=== PATIENT | female | born 1985 ===

== ENCOUNTER 2024-01-08 23:16 | Emergency (ER) | payer BC, SELFPAY ==
[2024-01-08 23:18] VITALS: BP 172/99
[2024-01-09 00:08] VITALS: BMI 25.9
[2024-01-09 00:15] VITALS: BP 136/93
[2024-01-09 00:25] LABS: Urine Albumin Negative (Neg - Trace); Urine Bilirubin Negative (Negative); Urine Character Clear (Clear); Urine Color Straw; Urine Glucose Negative (Negative); Urine Ketone Negative (Negative); Urine Leukocyte Trace (Negative); Urine Nitrite Negative (Negative); Urine Occult Blood Negative (Negative); Urine Urobilinogen Negative (Neg - 1+)
[2024-01-09 00:36] LABS: HCG, Serum Qualitative Screen Negative
[2024-01-09 00:40] LABS: ALT (SGPT) 234 U/L (0-35); AST (SGOT) 94 U/L (14-36); Albumin 3.8 g/dl (3.5-5.0); Alkaline Phosphatase 116 U/L (38-126); Blood Urea Nitrogen 12 mg/dl (7-17); Calcium 9.3 mg/dl (8.4-10.2); Carbon Dioxide 30 mmol/L (22-30); Chloride 103 mmol/L (98-107); Estimated Creatinine Clearance 93 ml/min; Glucose 121 mg/dl (70-99); Lipase 125 U/L (23-300); Potassium 3.8 mmol/L (3.5-5.1); Sodium 139 mmol/L (135-145); Total Bilirubin 0.3 mg/dl (0.2-1.3); Total Protein 5.9 g/dl (6.3-8.2); eGFR > 60.00
[2024-01-09 00:41] LABS: % Basophils 0.9 % (0-2); % Eosinophils 6.8 % (0-6); % Immature Granulocytes 2.4 % (0-0.5); % Lymphocytes 36.3 % (20.5-51.1); % Monocytes 6.4 % (1.7-9.3); % Neutrophils 47.2 % (42.2-75.2); Absolute Basophils 0.1 10^3/uL (0-0.2); Absolute Eosinophils 0.6 10^3/uL (0-0.7); Absolute Immature Granulocytes 0.2 10^3/uL (0-0.05); Absolute Lymphocytes 3.3 10^3/uL (1.2-3.4); Absolute Monocytes 0.6 10^3/uL (0.1-0.6); Absolute Neutrophils 4.2 10^3/uL (1.4-6.5); Hematocrit 38.8 % (37.0-47.0); Hemoglobin 13.6 g/dL (12.0-16.0); Mean Corp Hgb Conc. 35.1 g/dL (33.0-37.0); Mean Corpuscular Volume 88.4 fL (81.0-99.0); Mean Platelet Volume 10.6 fL (7.4-10.4); Nucleated Red Blood Cells % 0 %; Platelet Count 210 10^3/uL (130-400); Red Blood Cell Count 4.39 10^6/uL (4.20-5.40); Red Cell Dist. Width 13.1 % (11.5-14.5)
[2024-01-09 00:42] LABS: Urine Red Blood Cell None Seen /HPF (0-2)
[2024-01-09 00:45] VITALS: BP 136/93
[2024-01-09 01:00] VITALS: BP 131/83
--- NOTE | 2024-01-09 02:05 | ED.GENMED ---
History of Present Illness
General
Chief Complaint: Abdominal Pain
Source: patient
Exam Limitations: none
Time Seen by Provider: 01/09/24 01:50
Nursing documentation reviewed up to this point in time: agreed with
History of Present Illness
History of Present Illness:
This is a 38-year-old woman with history of lupus, currently well-controlled and not maintained on medications. She returned this evening from a 1 week vacation in [place] and presents to the ED with complaints of 3-day history of right lateral
abdominal pain that has been progressive over the past 3 days. Right lateral abdominal pain is worse with movement, worse with cough, improves with sitting or lying still. She denies insightful injury, denies lifting but has been pulling a
suitcase.
She did suffer an episode of bronchitis over 2 weeks ago with mild residual cough that resolved during the first 1 to 2 days of her vacation. Then 2 days after resolution of cough she developed right lateral abdominal pain.
She does admit to significant alcohol consumption over the past week while on vacation but denies daily nor frequent alcohol use.
Appetite has been good, no change in pain with meals, no nausea nor vomiting, no diarrhea or constipation, no dysuria no urgency nor hematuria. She denies back pain. She has not had a fever nor chills, denies chest pain or shortness of breath, no
leg pain or swelling. No rash.
Unsure as to her last menstrual period admits that menses are quite irregular. She has a Mirena IUD in place.
No history of similar episodes of pain.
She has not been taking anything for discomfort.
She takes no medicines on a daily basis.
Past History
Past History
ED Past Medical History: Other (Lupus)
ED Past Surgical History: None
Social History
Tobacco: Smoker
Alcohol: Occasional
Drug: None
Living: with family
Employment: Employed
Family History
Family History: Other (Noncontributory)
Phy Exam
Physical Exam
Physical Exam:
GENERAL: This is a 38-year-old woman appears her stated age, bright and alert, pleasant, appears in no acute distress.
EYE: anicteric
NECK: Supple, nontender, no meningismus, no significant adenopathy.
ENT: oral mucosa is moist. No rhinorrhea.
CARDIAC: Regular rate and rhythm. no murmur.
LUNGS: Clear breath sounds bilaterally, no acute respiratory distress, no wheezes/rales/rhonchi
ABDOMEN: Soft, nondistended, moderate tenderness right mid lateral abdomen, no r/g, no cvat. normoactive BS.
NEUROLOGICAL: Alert and oriented x3, no focal neuro deficits. Gait is steady.
SKIN: Warm and dry, normal color, skin intact. No rash.
MUSCULOSKELETAL: No C/C/E. peripheral pulses are full and equal b/l. No palpable tenderness.
PSYCH: Normal and appropriate interaction.
Course
Orders/Labs/Results
Orders:
Orders
01/09/24 00:09
Test Result ONCE
01/09/24 00:15
Complete Blood Count/With Diff Urgent
Comprehensive Metabolic Panel Urgent
HCG, Serum Qualitative Screen Urgent
Lipase Urgent
Urinalysis Reflex To Culture Urgent
Date Specimen was Collected: 01/09/24
Time Specimen was Collected: 00:07
Urine Microscopic Reflex Cult Urgent
01/09/24 02:03
CT Abd/pelvis W Iv Cont Urgent
Comment:
Reason For Exam: 3 day hx right lateral abd pain
01/09/24 02:04
Ketorolac [Toradol] 30 mg IV NOW STA
Abnormal Lab Results
01/09/24
00:15
MPV 10.6 H fL
(7.4-10.4)
Abs Immat Gran (auto) 0.2 H 10^3/uL
(0-0.05)
Immature Gran % 2.4 H %
(0-0.5)
Eosinophils % 6.8 H %
(0-6)
Glucose 121 H mg/dl
(70-99)
AST 94 H U/L
(14-36)
ALT 234 H U/L
(0-35)
Total Protein 5.9 L g/dl
(6.3-8.2)
Leukocyte Esterase Rfl Trace A
(Negative)
01/09/24 00:15
01/09/24 00:15
Vital Signs
Initial and Last Documented VS:
Initial Vital Signs
Temp Pulse Resp BP Pulse Ox
98.4 F 91 18 172/99 100
01/08/24 23:18 01/08/24 23:18 01/08/24 23:18 01/08/24 23:18 01/08/24 23:18
Last Documented Vital Signs
Temp Pulse Resp BP Pulse Ox
98.4 F 70 19 110/95 99
01/08/24 23:18 01/09/24 02:18 01/09/24 02:18 01/09/24 02:18 01/09/24 02:18
MDM/Problems Addressed
Differential Diagnosis Includes:
Concern for appendicitis, cholecystitis, ureteric stone, pyelonephritis, colitis, abdominal wall muscle strain.
Labs thus far reveal unremarkable CBC, mildly elevated LFTs with normal bilirubin, normal alkaline phosphatase. hCG is negative. Urinalysis is unremarkable.
Will medicate for pain with IV Toradol and plan for CT abdomen and pelvis.
*Radiology
Radiology exam reviewed: radiology read reviewed (CT of the abdomen pelvis is unremarkable. Normal appendix. No bowel obstruction. No obstructing renal stone.)
*Pulse Oximetry
Patient hypoxic: no
*Critical Care Note
Total Time (30-74mins, 75-104mins- exclusive of procedures): Not Applicable
Update Note
Update Note:
01/09/2024 0345 AM
Patient continues with right lateral mid abdominal pain most noted with repositioning, movement, improves when lying still.
CT abdomen pelvis is unremarkable.
I suspect abdominal wall muscle strain, other consideration is a mild hepatitis versus prodromal pain prior to herpes zoster. No evidence of liver pathology on CT.
Recommend she avoid alcoholic beverages at least over the next 2 to 3 weeks.
Will add a short course of diclofenac for as needed pain. Recommend rest, avoid heavy lifting or straining, local heat versus lidocaine patches.
Prompt follow-up with PCP this week for recheck.
ED Attending Note
-
Portions of this chart may have been created with voice recognition software.� Occasional wrong word or��sound alike� substitutions may have occurred due to the inherent limitations of voice recognition software.
Discharge Plan
Departure
Patient Disposition: Home (Routine Discharge)
Date of Disposition: 01/09/24
Time of Disposition: 03:47
Patient with high blood pressure during this ER visit?: No
Condition: Good
Discharge Problem:
Right lateral abdominal pain
Instructions: Abdominal Pain
Prescriptions:
New
diclofenac sodium 75 mg tablet,delayed release (DR/EC)
75 mg PO BID PRN (Reason: pain) Qty: 30 0RF
No Action
Mirena 21 mcg/24hr (up to 8 yrs) 52 mg Intrauterine Device
1 device INTRAUTERINE ONCE
Referrals:
José Miguel Wade MD [Family Provider] - Call in 1-3 days for appt
Interventions
Interventions:
*Risk Screen - Suicide Last Done: 01/08/24 23:18
*General Assessment Last Done: 01/08/24 23:18
*Neglect/Abuse Screening Last Done: 01/08/24 23:18
ED- Fall Risk Assessment Last Done: 01/09/24 00:43
WT-Gbubsy-Rqgsjrvzop Assessment Last Done: 01/09/24 00:43
Discharge Date and Time
Print Language: NEPALESE
[2024-01-09] MEDS: TORADOL 30 MG IV (02:14)
[2024-01-09 02:16] VITALS: BP 110/95
[2024-01-09 02:18] VITALS: BP 110/95
[2024-01-09 03:58] VITALS: BP 107/78
== END 2024-01-09 04:01 | disposition home or self-care (01) ==
LOC: EMR 23:16
PROVIDERS: EMERGENCY PHYSICIAN Emergency Medicine; FAMILY PHYSICIAN Family Medicine
DX: R10.9 Unspecified abdominal pain (principal); F17.200 Nicotine dependence, unspecified, uncomplicated
CPT/HCPCS: 99285; 96374; 74177; 80053; 81003; 81015; 83690; 84703; 85025; Q9967